=== PATIENT | female | born 1990 | race American Indian/Alaskan Native ===

== ENCOUNTER 2020-05-29 09:04 | Outpatient (CLI) | payer OTHER | END 2020-05-29 10:00 | disposition home or self-care (01) | LOC: NST 09:04 | PROVIDERS: ATTEND Obstetrics & Gynecology Maternal & Fetal Medicine | DX: Z34.83 Encounter for supervision of other normal pregnancy, third trimester (principal) ==

== ENCOUNTER 2020-06-27 07:17 | Outpatient (CLI) | payer OTHER | END 2020-06-27 08:03 | disposition home or self-care (01) | LOC: NST 07:17 | PROVIDERS: ATTEND Obstetrics & Gynecology | DX: Z34.83 Encounter for supervision of other normal pregnancy, third trimester (principal) ==

== ENCOUNTER 2020-06-30 07:46 | Outpatient (CLI) | payer OTHER | END 2020-06-30 08:24 | disposition home or self-care (01) | LOC: NST 07:46 | PROVIDERS: ATTEND Obstetrics & Gynecology | DX: Z34.83 Encounter for supervision of other normal pregnancy, third trimester (principal) ==

== ENCOUNTER 2020-07-18 09:01 | Outpatient (CLI) | payer OTHER | END 2020-07-18 09:59 | disposition home or self-care (01) | LOC: NST 09:01 | PROVIDERS: ATTEND Obstetrics & Gynecology | DX: Z34.83 Encounter for supervision of other normal pregnancy, third trimester (principal) ==

== ENCOUNTER 2020-07-19 12:45 | Inpatient (IN) | payer OTHER ==
[~2020-07-19] VITALS: Ht 167.6 cm; Wt 68.0 kg
[2020-07-31] MEDS ORDERED: HYDROXYCHLOROQ200 MG (08:25)
[2020-07-31] MEDS ORDERED: SYNTHROID50 MCG (08:25)
== END 2020-08-02 10:53 | disposition home or self-care (01) | DRG 787 ==
LOC: LDR 07-30 00:57 → SURG-SUITE 07-30 00:57 → LDR 08-07 12:45
PROVIDERS: ADMIT Obstetrics & Gynecology; ATTEND Obstetrics & Gynecology
PROC: 4A1HXFZ Monitoring of Products of Conception, Cardiac Rhythm, External Approach (ICD-10-PCS; 2020-07-30)
PROC: 10D00Z1 Extraction of Products of Conception, Low, Open Approach (ICD-10-PCS; principal; 2020-07-30 09:00)
DX: O62.1 Secondary uterine inertia (principal); O99.12 Other diseases of the blood and blood-forming organs and certain disorders involving the immune mechanism complicating childbirth; D68.62 Lupus anticoagulant syndrome; O76 Abnormality in fetal heart rate and rhythm complicating labor and delivery; O99.284 Endocrine, nutritional and metabolic diseases complicating childbirth; E03.8 Other specified hypothyroidism; Z3A.38 38 weeks gestation of pregnancy; Z37.0 Single live birth; Z20.822 Contact with and (suspected) exposure to COVID-19

== ENCOUNTER 2020-07-25 10:58 | Outpatient (CLI) | payer OTHER | END 2020-07-25 11:47 | disposition home or self-care (01) | LOC: NST 10:58 | PROVIDERS: ATTEND Obstetrics & Gynecology Maternal & Fetal Medicine | DX: Z34.83 Encounter for supervision of other normal pregnancy, third trimester (principal) ==